=== PATIENT | female | born 1990 | race Caucasian/White ===

== ENCOUNTER → 2019-12-02 | Outpatient (CLI) | payer OTHER, BC ==
[2019-12-02 13:01] LABS: ALBUMIN 4.2 g/dL (3.5-5.0); ALKALINE PHOSPHATASE 72 U/L (38-126); ANION GAP 8 (5-19); ASPARTATE AMINO TRANSFERASE 19 U/L (14-36); BILIRUBIN,TOTAL 0.4 mg/dL (0.2-1.3); BLOOD UREA NITROGEN 13 mg/dL (7-20); CARBON DIOXIDE 25 mmol/L (22-30); CHLORIDE 105 mmol/L (98-107); GLUCOSE 88 mg/dL (75-110); PHOSPHORUS 2.2 mg/dL (2.5-4.5); POTASSIUM 4.4 mmol/L (3.6-5.0); TOTAL PROTEIN 7.8 g/dL (6.3-8.2)
== END ==
LOC: OD 12:00
PROVIDERS: ATTEND Internal Medicine Endocrinology, Diabetes & Metabolism
DX: E83.31 Familial hypophosphatemia (principal)
CPT/HCPCS: 36415; 80053; 82306; 83970; 84100

== ENCOUNTER → 2020-01-01 | Outpatient (CLI) | payer BC, OTHER ==
--- NOTE | 2020-01-01 12:53 | RADIOLOGY REPORT (SQ) ---
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 TECHNIQUE: Noncontrast scanning through the paranasal sinuses using bone algorithm. Reconstructed MPR images reviewed. All images stored on PACS. All CT scanners at this facility use dose modulation, iterative reconstruction, and/or weight based d osing when appropriate to reduce radiation dose to as low as reasonably achievable (ALARA). [facility]: Dose Right [facility]: CareDose [facility]: Dose Right [facility]: Teradose 4D [facility]: Edi.io RADIATION DOSE: 48 mGy LIMITATIONS: None. FINDINGS: Right sinuses and drainage pathways: Post-surgical changes: None. Frontal sinus: Normal. Frontoethmoidal Recess: Opacified Anterior Ethmoid Sinuses: Opacified Posterior Ethmoid Sinuses: Opacified Sphenoid Sinus: Circumferential mucous membrane thickening Sphenoethmoidal Recess: Opacified Maxillary Sinus: Circumferential mucous membrane thickening. Debris dependently layering Ostiomeatal Complex: Completely opacified Left Sinuses and Drainage Pathways: Post-Surgical Changes: None. Frontal Sinus: Normal. Frontoethmoidal Recess: Opacified Anterior Ethmoid Sinuses: Opacified Posterior Ethmoid Sinuses: Opacified Sphenoid Sinus: Circumferential mucous membrane thickening Sphenoethmoidal Recess: Opacified Maxillary Sinus: Circumferential mucous membrane thickening. Debris dependently layering Ostiomeatal Complex: Completely opacified Right Olfactory Fossa: Right nasal cavity is filled with soft tissue, multiple polyps are suspected. These extend into the posterior nasopharynx Left Olfactory Fossa: Small anterior nasal cavity polyps Middle Turbinate Betzy Bullosa: No. Paradoxical Middle Turbinate: No. Atelectatic Uncinated Process: No. Frontal Nona Cell Type I: No. Frontal Nona Cell Type II: No. Interfrontal Sinus Septal Cell: None. Supra-Orbital Ethmoid: None. Frontal Bullar Cell: None. Suprabullar Bullar Cell: None. Sphenoethmoidal ([place]) Cell: None. Pneumatization of the Anterior Clinoid Processes: No Hypoplastic Maxillary Sinus: None. Osteoneogenesis: None. Bone Dehiscence:None. Nasal Cavity: Normal. Nasal Septum: Midline Middle ear cavities, mastoid air cells are clear. Anatomic Variants: Right Vidian Canal: Normal. Left Vidian Canal: Normal. IMPRESSION: Diffuse inflammatory changes throughout the sinuses TECHNICAL DOCUMENTATION: JOB ID: [id number] Quality ID # [id number]: Final reports with documentation of one or more dose reduction techniques (e.g., Au tomated exposure control, adjustment of the mA and/or kV according to patient size, use of iterative reconstruction technique) 2010 [email or web address]- All Rights Reserved Reading location - IP/workstation name: [email or web address]
== END ==
LOC: RAD 08:03
PROVIDERS: ATTEND Otolaryngology
DX: J33.9 Nasal polyp, unspecified (principal)
CPT/HCPCS: 70486

== ENCOUNTER 2020-03-02 12:56 | Emergency (ER) | payer BC, OTHER ==
[2020-03-02 13:06] VITALS: BP 148/75
--- NOTE | 2020-03-03 19:29 | EKG REPORT ---
SEVERITY:- BORDERLINE ECG - SINUS RHYTHM PROBABLE LEFT ATRIAL ABNORMALITY : Confirmed by: Miller Sorto MD 03-Mar-2020 19:28:17
== END 2020-03-02 14:26 | disposition left against medical advice (07) ==
LOC: ER 12:56
DX: Z53.21 Procedure and treatment not carried out due to patient leaving prior to being seen by health care provider (principal)